=== PATIENT | female | born 1970 | race Caucasian/White ===

== ENCOUNTER 2017-04-14 18:55 | Emergency (ER) | payer OTHER | END 2017-04-14 20:05 | disposition home or self-care (01) | LOC: ER1 18:55 | DX: S80.872A Other superficial bite, left lower leg, initial encounter (principal); F17.210 Nicotine dependence, cigarettes, uncomplicated; W54.0XXA Bitten by dog, initial encounter | CPT/HCPCS: 99283 ==

== ENCOUNTER 2020-12-30 22:13 | Observation (INO) | payer OTHER ==
[~2020-12-30] VITALS: Ht 167.6 cm; Wt 72.6 kg
[~2020-12-30 22:13] MED LIST: ALENDRONATE SOD70 MG PO; CLARITIN10 MG PO; LEXAPRO10 MG PO; NORCO 5-325 TA1 EACH PO; OMEPRAZOLE20 MG PO; VITAMIN D35000 UNI1 PO
[2020-12-30 22:45] LABS: HEMOGLOBIN 13.1 gm/dl (12.3-15.3); RED BLOOD COUNT 4.34 M/UL (4.00-5.10); WHITE BLOOD COUNT 13.7 K/UL (4.5-11.0)
[2020-12-30 23:06] LABS: BUN/CREATININE RATIO 11 (0-10)
[2020-12-31] MEDS ORDERED: METOPROLOL SUCC25 MG PO (04:56)
[2020-12-31] MEDS ORDERED: ASPIRIN81 MG PO (04:56)
[2020-12-31] MEDS ORDERED: BRILINTA90 MG PO (04:57)
[2020-12-31] MEDS ORDERED: LIPITOR40 MG PO (04:57)
[2020-12-31] MEDS ORDERED: NICOTINE PATCH1 EAC5 TD (04:58)
[2020-12-31] MEDS ORDERED: NEURIVA PO (09:26)
[2021-01-01 03:31] LABS: RED BLOOD COUNT 4.24 M/UL (4.00-5.10); WHITE BLOOD COUNT 10.4 K/UL (4.5-11.0)
[2021-01-01 03:47] LABS: BUN/CREATININE RATIO 18 (0-10)
[2021-01-01] MEDS ORDERED: NICOTINE PATCH1 EAC1 TOP (14:03)
[2021-01-01] MEDS ORDERED: PLAVIX75 MG PO (15:05)
== END 2021-01-01 15:25 | disposition home or self-care (01) ==
LOC: ER1 22:13 → MED SURG 4 12-31 02:56 → CDU 12-31 02:56 → MED SURG 4 12-31 16:19
PROVIDERS: Family Medicine; ADMIT Internal Medicine
DX: R07.9 Chest pain, unspecified (principal); I25.2 Old myocardial infarction; I10 Essential (primary) hypertension; E78.5 Hyperlipidemia, unspecified; F41.9 Anxiety disorder, unspecified; F32.9 Major depressive disorder, single episode, unspecified; M81.0 Age-related osteoporosis without current pathological fracture; I45.10 Unspecified right bundle-branch block; F17.210 Nicotine dependence, cigarettes, uncomplicated; E87.6 Hypokalemia; I25.10 Atherosclerotic heart disease of native coronary artery without angina pectoris; Z20.822 Contact with and (suspected) exposure to COVID-19; Z95.5 Presence of coronary angioplasty implant and graft; Z82.49 Family history of ischemic heart disease and other diseases of the circulatory system; Z79.82 Long term (current) use of aspirin; Z79.899 Other long term (current) drug therapy
CPT/HCPCS: 36415; 71045; 80053; 82550; 82553; 83735; 83874; 84484; 85025; 85027; 85379; 93005; 96372; 96374; 96375; 99285; G0378; J1650; J2270; J2405; U0002

== ENCOUNTER 2021-05-07 11:48 | Emergency (ER) | payer OTHER ==
[~2021-05-07 11:48] MED LIST changes: +ASPIRIN81 MG PO; +BRILINTA90 MG PO; +LIPITOR40 MG PO; +METOPROLOL SUCC25 MG PO; +NEURIVA PO; +NICOTINE PATCH1 EAC1 TOP; +NICOTINE PATCH1 EAC5 TD; +PLAVIX75 MG PO
[2021-05-07 12:40] LABS: HEMOGLOBIN 14.6 gm/dl (12.3-15.3); RED BLOOD COUNT 4.91 M/UL (4.00-5.10); WHITE BLOOD COUNT 15.8 K/UL (4.5-11.0)
[2021-05-07 15:13] LABS: BUN/CREATININE RATIO 13 (0-10)
== END 2021-05-07 15:05 | disposition home or self-care (01) ==
LOC: ER1 11:48
PROVIDERS: Physician Assistant
DX: I25.10 Atherosclerotic heart disease of native coronary artery without angina pectoris (principal); I25.2 Old myocardial infarction; Z90.49 Acquired absence of other specified parts of digestive tract; Z90.89 Acquired absence of other organs; Z90.710 Acquired absence of both cervix and uterus; Z79.01 Long term (current) use of anticoagulants; Z79.02 Long term (current) use of antithrombotics/antiplatelets; F17.220 Nicotine dependence, chewing tobacco, uncomplicated; Z20.822 Contact with and (suspected) exposure to COVID-19
CPT/HCPCS: 71045; 80053; 82550; 82553; 83874; 83880; 84484; 85025; 85379; 93005; 99285; U0002

== ENCOUNTER → 2021-06-03 | Outpatient (CLI) | payer OTHER | LOC: MAMO 14:07 | DX: Z12.31 Encounter for screening mammogram for malignant neoplasm of breast (principal) | CPT/HCPCS: 77063; 77067 ==

== ENCOUNTER → 2021-07-01 | Outpatient (CLI) | payer OTHER | LOC: US 06-14 13:30 | DX: R92.8 Other abnormal and inconclusive findings on diagnostic imaging of breast (principal) | CPT/HCPCS: 76641-LT; 76641-RT ==

== ENCOUNTER → 2021-09-04 | Outpatient (CLI) | payer OTHER | LOC: KOH-I 11:19 | DX: J01.81 Other acute recurrent sinusitis (principal) | CPT/HCPCS: 70486 ==